=== PATIENT | male | born 1985 | race Caucasian/White ===

== ENCOUNTER 2024-12-25 08:25 | Emergency (ER) | payer SELFPAY ==
[~2024-12-25] VITALS: Ht 172.7 cm; Wt 65.0 kg
[2024-12-25 08:26] VITALS: O2SAT 100
[2024-12-25 09:08] LABS: BASOPHILS % 1.3 % (0.0-2.0); EOSINOPHILS % 8.8 % (0.0-5.0); HEMATOCRIT. 50.5 % (42.0-52.0); HEMOGLOBIN. 16.9 g/dL (14.0-18.0); LYMPHOCYTES % 27.7 % (20.0-50.0); MEAN PLATELET VOLUME 6.9 fl (7.4-10.4); MONOCYTES % 5.7 % (2.0-8.0); NEUTROPHILS % 56.5 % (40.0-76.0); PLATELET 240 x1000/uL (130-400); RED BLOOD CELL COUNT 5.92 mill/uL (4.7-6.1); RED CELL DISTRIBUTION WIDTH 13.2 % (11.6-14.6)
[2024-12-25 09:24] LABS: CREATININE 1.2 mg/dL (0.6-1.3); UREA NITROGEN BLOOD 12 mg/dL (9-23)
[2024-12-25] MEDS: ACETAMINOPHEN 325MG TABLET PO NR (09:24)
[2024-12-25 09:26] LABS: ASPARTATE AMINOTRANSFERASE 20 IU/L (<34); BILIRUBIN TOTAL 0.5 mg/dL (0.1-1.0); PROTEIN TOTAL 7.6 g/dL (6.0-8.3)
[2024-12-25 10:17] VITALS: BP 111/62; PULSE 62; RESP 18; TEMP 36.8; O2SAT 100
== END 2024-12-25 10:32 | disposition home or self-care (01) ==
LOC: ER 08:25
DX: R56.9 Unspecified convulsions (principal)
CPT/HCPCS: 80053; 85025; 36415; 99284; Z7610; A4606